=== PATIENT | female | born 1985 | race Two or more races ===

== ENCOUNTER → 2019-12-07 08:32 | Outpatient (BNVA) | payer BC, SELFPAY | PROVIDERS: PCP Internal Medicine; Referring Provider Internal Medicine; Visit Provider Advanced Practice Midwife | DX: Z76.89 Persons encountering health services in other specified circumstances (principal) ==

== ENCOUNTER 2021-02-27 06:11 | Outpatient (REF) | payer BC, SELFPAY ==
[2021-02-27 11:22] LABS: MANUAL DIFF FLAG NO
[2021-02-27 11:33] LABS: Basophils Absolute Auto 0.1 X10*3/uL (0.0-0.2); Basophils Percent Auto 1.4 % (0-2); Eosinophils Absolute Auto 0.2 X10*3/uL (0.0-0.4); Eosinophils Percent Auto 4.3 % (0-4); Hematocrit 36.9 % (37.0-47.0); Hemoglobin 12.3 g/dl (12.0-16.0); Imm Gran Abs Auto 0.01 X10*3/uL (0.00-0.03); Imm Gran Pct Auto 0.2 % (0.0-0.4); Lymphocytes Absolute Auto 1.8 X10*3/uL (1.2-4.9); Lymphocytes Percent Auto 36.6 % (20-40); Mean Corpuscular HGB Conc 33.3 g/dl (31.0-35.0); Mean Platelet Volume 11.1 fL (9.4-12.3); Monocytes Absolute Auto 0.5 X10*3/uL (0.1-1.2); Monocytes Percent Auto 9.7 % (2-11); Neutrophils Absolute Auto 2.3 x10*3/uL (2.0-8.3); Neutrophils Percent Auto 47.8 % (45-73); Platelet Count 247 X10*3/uL (160-400); Red Cell Distribution Width 12.6 % (11.0-16.0); White Blood Count 4.9 X10*3/uL (4.8-10.8)
[2021-02-27 12:05] LABS: Anion Gap 11 (12-20); Blood Urea Nitrogen 11 mg/dL (9-16); C Reactive Protein 0.06 mg/dL (< or = 0.50); Calcium 9.3 mg/dL (8.4-10.2); Carbon Dioxide 25 mmol/L (22-29); Chloride 107 mmol/L (96-108); Estimated Glomerular Filt Rate > 60; Glucose Fasting 91 mg/dL (60-99); Iron 105 mcg/dL (30-160); Percent Iron Saturation 34 % (15-50); Rheumatoid Factor < 15.0 IU/mL (<15.0); Sodium 139 mmol/L (135-145); Total Iron Binding Capacity 312 mcg/dL (228-428); Unsaturated Iron Binding 207 ug/dL
[2021-02-27 12:10] LABS: Erythrocyte Sedimentation Rate 7 MM/HR (0-20)
[2021-03-01 06:37] LABS: Thyroid Peroxidase Antibodies <1 IU/mL (<9)
[2021-03-01 21:11] LABS: Anti Nuclear Antibody Screen NEGATIVE (NEGATIVE)
== END 2021-02-27 06:12 | disposition home or self-care (01) ==
LOC: HO.HMGCLDS 06:11
PROVIDERS: Visit Provider Internal Medicine
DX: M25.50 Pain in unspecified joint (principal); Z86.2 Personal history of diseases of the blood and blood-forming organs and certain disorders involving the immune mechanism
CPT/HCPCS: 36415; 80048; 83540; 84443; 85025; 85652; 86038; 86039; 86140; 86376; 86431

== ENCOUNTER 2022-11-05 08:19 | Outpatient (AMB) | payer BC, SELFPAY ==
[2022-11-05 08:27] VITALS: BP 118/70; PULSE 76; O2SAT 98; BMI 33.0
--- NOTE | 2022-11-05 08:27 | A.OFFPC_ITS ---
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 Accompanied by: Self / Same As Patient Is last menstrual period known: Yes (4 days long ) Last menstrual period: 10/17/22 Post menopausal: No Patient : No Allergies sulfamethoxazole [From SEPTRA] Allergy (Unknown, Verified 11/05/22 08:51) UNKNOWN trimethoprim [From SEPTRA] Allergy (Unknown, Verified 11/05/22 08:51) UNKNOWN Septra Allergy (Unknown, Uncoded 11/05/22 08:51) unknown Medication List - Last Reconciled 11/05/22 by Mehnaz lOson MD diclofenac sodium 1% 4 grams topical QID PRN fexofenadine 180 mg PO DAILY PNV,calcium 72-iron,carb-folic 29 mg iron- 1 mg ( Plus) 1 tab PO DAILY Tobacco use date assessed: 11/05/22 Dental Screening Dental Screen Date: 11/05/22 Did you have a dental visit in the last 12 months?: Yes Did you have a dental problem in the last 6 months where you did not have access to dental care?: No Was dental information given to patient?: Patient has dentist HPI Physical exam HPI Details 37-year-old lady here today for physical exam. Has been getting her cervical cancer screening from [facility], patient states she will call to schedule own appointment. Complains of itchy recurrent rash behind both ears left more than the right. Has been using cortisone cream which has not afforded any relief. Requesting referral to Dermatology in [place]. Gets recurrent knee pain, gets relief with the application of diclofenac gel, which she uses as needed. Already received her flu shot for this year. Up-to-date with her [facility] Medical History (Updated 11/05/22 @ 09:21 by Mehnaz Olson MD) Obesity (BMI 30.0-34.9) Eczema of both external ears Family history of thyroid cancer History of anemia Polyarthralgia Iron deficiency anemia Bacterial vaginitis Seasonal allergic rhinitis Surgical History History of loop electrosurgical excision procedure (LEEP) Family History Maternal Grandfather CVD (cardiovascular disease) Maternal Grandmother Diabetes mellitus Mother Diabetes mellitus Thyroid cancer Social History Housing: House Patient Tobacco Use Status: Never used Tobacco e-Cigarette/Vaping Use: Never Used Patient : No Current occupational status: unemployed Cognitive needs: No Hearing needs: No Vision needs: No Female Reproductive History Menstrual Age of Menarche: 10 Date of last menstrual period: 10/17/22 Questionnaire PHQ-9 Over the last 2 weeks, how often have you been bothered by any of the following problems? 1. Little interest or pleasure in doing things: not at all 2. Feeling down, depressed, or hopeless: not at all 3. Trouble falling or staying asleep, or sleeping too much: not at all 4. Feeling tired or having little energy: not at all 5. Poor appetite or overeating: not at all 6. Feeling bad about yourself - or that you are a failure or have let yourself or your family down: not at all 7. Trouble concentrating on things, such as reading the newspaper or watching television: not at all 8. Moving or speaking so slowly that other people could have noticed. Or the opposite - being so fidgety or restless that you have been moving around a lot more than usual: not at all 9. Thoughts that you would be better off or of hurting yourself in some way: not at all Total score: 0 Depression Screening Interpretation: Negative 65881 - PHQ-9 Billing: Yes Source: Developed by Drs. Meir Taylor, Rosa Art, Mauro Bradford and colleagues, with an educational nilsa from [employer]. Thrive Questionnaire Date Thrive assessed: 11/05/22 I am a: Patient What is your living situation today?: I have a steady place to live Within the past 12 months, did the food you bought not last and you didn't have the money to get more?: Never true Within the past 12 months, did you worry whether your food would run out before you got money to buy more?: Never true Do you have trouble paying for medicines?: No Do you have trouble getting transportation to medical appointments?: No Do you have trouble paying your heating and electricity bill?: No Do you have trouble taking care of your child, family member or friend?: No Do you have trouble with day-to-day activities such as bathing, preparing meals, shopping, managing finances, etc.?: No Are you currently unemployed and looking for a job?: No Are you interested in more education?: No Please select the resources that you would like help with: None AUDIT C Alcohol Use Questionnaire (AUDIT-C) 1. How often do you have a drink containing alcohol?: Never Total Score: 0 LISETTE-7 AMB Questionnaire LISETTE-7 Date LISETTE - 7 assessed: 11/05/22 Feeling nervous, anxious, or on edge: 0 = Not at all Not being able to stop or control worryin = Not at all Worrying too much about different things: 0 = Not at all Trouble relaxin = Not at all Being so restless that it is hard to sit still: 0 = Not at all Becoming easily annoyed or irritable: 0 = Not at all Feeling afraid as if something awful might happen: 0 = Not at all Total LISETTE-7 score (0-4 normal; 5-9 mild; 10-14 moderate; 15-21 severe): 0 Source: Developed by Drs. Meir Taylor, Rosa Art, Mauro Bradford and colleagues, with an educational nilsa from [employer]. LISETTE-7 Assessment Billing LISETTE-7 Assessment Tool: LISETTE-7 Assessment 60954 Review of Systems Const Denies anorexia, Denies difficulty sleeping, Denies fatigue, Denies fever(s), Denies headache(s), Denies lethargy and Denies malaise Eyes Details: Goes to [facility] for her routine eye exam Reports no additional complaints, Reports blurry vision and Denies change in vision ENT Reports no additional complaints, Denies headache(s) and Denies nasal congestion Card Reports no additional complaints Resp Reports no additional complaints GI Reports no additional complaints Reports no additional complaints Musc Reports as per HPI Skin/Breast Denies breast pain and Denies breast mass Neuro Reports no additional complaints and Denies headache(s) Psych Reports as per HPI Endo Denies fatigue, Denies polyphagia, Denies polydipsia and Denies polyuria Hossein/Lymph Denies easy bleeding and Denies easy bruising Aller/Immun Reports as per HPI Physical exam (Primary Care) Vital Signs: Last Vital Signs Pulse 76 11/05/22 08:27 BP 118/70 11/05/22 08:27 Pulse Ox 98 11/05/22 08:27 BMI result Body Mass Index 33.0 BMI Assessment/Plan discussion: High BMI High, discussed plan: lifestyle, weight reduction, dietary and physical activity Tobacco/Smoking Status: Tobacco use Status Tobacco use date assessed 11/05/22 11/05/22 08:32 Patient Tobacco Use Status Never used Tobacco 11/05/22 08:32 e-Cigarette/Vaping Use Never Used 11/05/22 08:32 Depression Screening Interpretation: Negative Thrive Assessment: Date of Thrive Assessment Date Thrive assessed 02/26/21 11/05/22 08:32 Const General: comfortable, no acute distress and alert Nutritional Appearance: obese Orientation/consciousness: patient oriented x3 Limitations: no limitations HENMT Head: Yes normocephalic and Yes atraumatic Ears: hearing grossly normal bilaterally, TM's normal bilaterally and EAC's normal General nose exam: Normal external nose present and No nasal discharge present Face and sinus: Yes sinuses nontender and Yes face symmetric Mouth: Normal oral and palatal mucosa present, oropharynx normal and moist mucous membranes Eyes General: appearance normal, both eyes and all related structures Neck Neck: Yes full ROM, Yes no lymphadenopathy, Yes no meningeal signs and Yes supple Thyroid: Thyroid normal Chest Chest palpation & inspection: normal inspection of the chest Breast/axilla palpation: normal palpation of the breasts Resp Effort & Inspection: normal respiratory effort and able to speak in complete sentences Auscultation: clear to auscultation bilaterally Cardio Rate: regular rate Rhythm: regular rhythm Heart sounds: S1 normal heart sound present and S2 normal heart sound present GI Inspection: Yes normal to inspection Palpation (GI): Soft to palpation, nontender and no guarding Auscultation: normal bowel sounds Back/Spine/Pelvis Back: No back tenderness Skin General skin exam: no rashes or lesions noted Neuro General: patient oriented x3, gait normal, tone normal, moves all extremities, Normal light touch and pain sensation, no meningeal signs, no focal motor deficits and CN's II-XI intact bilaterally Cognition (Neuro): normal cognition Gait exam (Neuro): Normal gait present Extrem General: Yes full ROM, Yes no joint enlargement, Yes no pedal edema, Yes no calf tenderness and Yes normal gait Psych Appearance: grossly normal and well kempt Mental Status: mental status grossly normal Speech and movement: Normal speech and movement present Affect: normal affect Attitude: cooperative Thought process: Normal thought process present Thought content: Normal thought content present Assessment and Plan Assessment & Plan (1) Eczema of both external ears: Code(s): H60.543 - Acute eczematoid otitis externa, bilateral Plan: Discontinue cortisone, prescription sent for fluocinonide emollient cream 0.05%, to apply sparingly to affected areas behind both ears twice a day for no more than 7 days. Referral to Dermatology ordered (2) Family history of thyroid cancer: Code(s): Z80.8 - Family history of malignant neoplasm of other organs or systems Plan: Check TSH with free T4 (3) History of anemia: Code(s): Z86.2 - Personal history of diseases of the blood and blood-forming organs and certain disorders involving the immune mechanism Plan: CBC with vitamin B12 and vitamin-D ordered (4) Obesity (BMI 30.0-34.9): Code(s): E66.9 - Obesity, unspecified Plan: Discussed need to increase activity to help with weight loss weight loss. Recommended focusing on improving your health instead of dieting. : Eat Mediterranean diet, limit foods high in fat, sugar, and calories, eat slowly, pay attention to portion sizes, plan your meals ahead of time, start regular physical activity 150 minutes of moderate intensity exercise or 90 minutes/week of vigorous exercise and increase water intake. (5) Annual visit for general adult medical examination with abnormal findings: Code(s): Z00.01 - Encounter for general adult medical examination with abnormal findings Plan: Will check appropriate labs. Continue regular dental visit every 6 months and regular eye exams, at least every 2 years, sees [place] [facility]. Take adequate calcium in diet and vitamin-D 3 at 2000 IU per cap once a day, in addition to weight-bearing exercises to help maintain good muscle tone and weight control. Instructed to do self-breast exam, and recommended to get yearly mammogram, starting at age 40. Patient up-to-date with the flu shot, will be scheduling appointment to get her COVID booster, with Tdap Orders: Orders Comprehensive [place]. Panel Fast Today Z00.01 - Encounter for general adult medical examination with abnormal findings, Z80.8 - Family history of malignant neoplasm of other organs or systems, Z86.2 - Personal history of diseases of the blood and blood-forming organs and certain disorders involving the immune mechanism Lipid Panel Today Z00. - Encounter for general adult medical examination with abnormal findings, Z80.8 - Family history of malignant neoplasm of other organs or systems, Z86.2 - Personal history of diseases of the blood and blood-forming organs and certain disorders involving the immune mechanism TSH reflex Free T4 Today Z00. - Encounter for general adult medical examination with abnormal findings, Z80.8 - Family history of malignant neoplasm of other organs or systems, Z86.2 - Personal history of diseases of the blood and blood-forming organs and certain disorders involving the immune mechanism Vitamin D 25-OH Total Today Z00. - Encounter for general adult medical examination with abnormal findings, Z80.8 - Family history of malignant neoplasm of other organs or systems, Z86.2 - Personal history of diseases of the blood and blood-forming organs and certain disorders involving the immune mechanism Complete Blood Count Auto Diff Today Z00. - Encounter for general adult medical examination with abnormal findings, Z80.8 - Family history of malignant neoplasm of other organs or systems, Z86.2 - Personal history of diseases of the blood and blood-forming organs and certain disorders involving the immune mechanism Vitamin B12 and Folate Today Z00.01 - Encounter for general adult medical examination with abnormal findings, Z80.8 - Family history of malignant neoplasm of other organs or systems, Z86.2 - Personal history of diseases of the blood and blood-forming organs and certain disorders involving the immune mechanism Referrals Dermatology Referral H60.543 - Acute eczematoid otitis externa, bilateral, Z12.83 - Encounter for screening for malignant neoplasm of skin Medications: New fluocinonide-emollient 0.05 % (Fluocinonide-E) 1 appl topical BID 15 grams 0RF 7 days H60.543 - Acute eczematoid otitis externa, bilateral Coding Level of Care Code Est Pt Prev Care 18-39y(14116) Diagnoses Eczema of both external ears H60.543 Family history of thyroid cancer Z80.8 History of anemia Z86.2 Obesity (BMI 30.0-34.9) E66.9 Annual visit for general adult medical examination with abnormal findings Z00.01 Additional Codes LISETTE-7 Assessment Billing - LISETTE-7 Assessment Tool: LISETTE-7 Assessment [id number] ([id number])
== END 2022-11-05 09:31 | disposition home or self-care (01) ==
PROVIDERS: Visit Provider Internal Medicine
DX: Z00.00 Encounter for general adult medical examination without abnormal findings (principal); H60.543 Acute eczematoid otitis externa, bilateral; Z80.8 Family history of malignant neoplasm of other organs or systems; Z86.2 Personal history of diseases of the blood and blood-forming organs and certain disorders involving the immune mechanism; E66.9 Obesity, unspecified; Z68.33 Body mass index [BMI] 33.0-33.9, adult
CPT/HCPCS: 99395

== ENCOUNTER 2022-11-12 08:38 | Outpatient (AMB) | payer BC, SELFPAY ==
--- NOTE | 2022-11-12 09:28 | AM.OFFWIN_ITS ---
Intake Vital Signs 11/12/22 09:34 Height 5 ft 4 in Weight 85.786 kg BMI 32.5 BP 118/86 Blood Pressure Location Lt brachial Position Sitting Pulse 79 Pulse Source Pulse Oximeter Temp 98.3 F Temp Source Oral Pulse Oximetry (%) 98 Oxygen Delivery Method Room Air Intake Visit Reasons: EP, Sore throat [phone] Intake Note: Patient here for sore throat, she had a high fever on thursday and thursday and then broke out in hives. right sided tonsil feels tendor and swollen and now right ear is hurting. Also bumps on back of tongue. Patient Tobacco Use Status: Never used Tobacco Allergies sulfamethoxazole [From SEPTRA] Allergy (Unknown, Verified 11/12/22 09:29) UNKNOWN trimethoprim [From SEPTRA] Allergy (Unknown, Verified 11/12/22:29) UNKNOWN Septra Allergy (Unknown, Uncoded 11/12/22 09:29) unknown Do you need a note to return to daycare/school/sports/work: No HPI HPI Comments History of Present Illness Details 09 37 year old female w/o significant medic al hx presents w/ fatigue, malaise, sore throat R>L, right ear pain X 5 days. This started 5 days ago with a high fever 102.4 degrees F followed by a rash which has now subsided now complaining of fatigue, malaise, sore throat, sore throat worse on the right, also reporting right ear pain but she is not sure if it is just radiation of sore throat. Child was home with a fever. Has taken multiple negative COVID test at home. Denies chest pain, shortness of breath, nausea, vomiting abdominal pain, changes in urination or bowel habits hep, headache, vision changes Physical exam with an erythematous pharynx, bilateral tonsils with erythema, no edema, abscess or exudate. Uvula midline. Speaking in full sentences controlling secretions well. No mastoid tenderness bilaterally. No pain with manipulation of external ears bilaterally. Tympanic membrane pearly white clear landmarks, no erythema ear canal bilaterally. Concerns for pharyngitis. No signs of retropharyngeal, peritonsillar abscess. No signs of bed airway, epiglottitis. Other differentials include viral illness. No signs of mastoiditis. Plan will discharge home on Augmentin, prednisone. Educated patient on diagnosis and treatment plan, answered all question, patient verbalizes understanding. At this time patient will be discharged home, advised to return with new or worsening symptoms. Educated on worrisome signs and symptoms and when to return. At this time I feel comfortable discharge home. [facility] Medical History Obesity (BMI 30.0-34.9) Eczema of both external ears Family history of thyroid cancer History of anemia Polyarthralgia Iron deficiency anemia Bacterial vaginitis Seasonal allergic rhinitis Surgical History History of loop electrosurgical excision procedure (LEEP) Family History Maternal Grandfather CVD (cardiovascular disease) Maternal Grandmother Diabetes mellitus Mother Diabetes mellitus Thyroid cancer Social History Housing: House Patient Tobacco Use Status: Never used Tobacco e-Cigarette/Vaping Use: Never Used Current occupational status: unemployed Cognitive needs: No Hearing needs: No Vision needs: No Female Reproductive History Menstrual Age of Menarche: 10 Review of Systems Const Details: Constitutional : No Weight loss, No Fever, No Chills, + Fatigue, + Malaise ENT/Mouth : + sore throat, No Rhinorrhea, + ear pain Eyes: No Eye Pain, No Swelling, No Redness Cardiovascular : No Chest Pain, No SOB, No Dyspnea on Exertion, No Orthopnea, No Edema, No Palpitations Respiratory : No Cough, No Sputum, No Wheezing Gastrointestinal : No Nausea, No Vomiting, No Diarrhea, No Constipation, No abdominal Pain, No Hematochezia, No Melena Genitourinary : No Dysuria, No Urinary Frequency, No Hematuria, Musculoskeletal : No joint pain, No Myalgias, No Joint Swelling Skin : No Skin Lesions, No rash Neuro : No Weakness, No Numbness, No Dizziness, No Headache Psych : No Anxiety/Panic, No Depression All other systems reviewed and are negative All systems reviewed & are unremarkable except as noted in HPI and below Physical Exam Vital Signs: Last Vital Signs Temp 98.3 F 11/12/22 09:34 Pulse 79 11/12/22 09:34 BP 118/86 11/12/22 09:34 Pulse Ox 98 11/12/22 09:34 Oxygen Delivery Method Room Air 11/12/22 09:34 BMI result Body Mass Index 32.5 vss Appearance: Alert.? Oriented X3.? No acute distress.? Head: Normocephalic, atraumatic, no step-offs or deformities Eyes: Pupils equal, round and reactive to light.? ENT: + Erythematous pharynx, bilateral tonsils with erythema, no edema, abscess or exudate. Uvula midline. Speaking in full sentences controlling secretions well. No mastoid tenderness bilaterally. No pain with manipulation of external ears bilaterally. Tympanic membrane pearly white clear landmarks, no erythema ear canal bilaterally. Neck: Normal inspection.? Neck supple.? CVS: Normal heart rate and rhythm.? Pulses normal.? Respiratory: No respiratory distress.? Breath sounds normal.? Abdomen: Soft and nontender.? Skin: Skin warm and dry.? Normal skin color.? Normal skin turgor.? Extremities: No lower extremity edema.? No calf ttp. 5/5 strength to bilateral upper and lower extremities Back: No midline tenderness, no C-spine tenderness, full range of motion, no CVA tenderness bilaterally Neuro: Oriented X 3.? No motor deficit.? No sensory deficit. CN 2-12 intact Assessment & Plan Assessment & Plan (1) Pharyngitis: Code(s): J02.9 - Acute pharyngitis, unspecified Plan Take your medications as prescribed. If you were prescribed antibiotics today, it is important that you take your medication to their entirety, do not skip any doses, do not finish them early. Follow-up with your primary care provider this week. Return to the emergency department with new or worsening symptoms. Such as fevers, chills, chest pain, shortness of breath, nausea, vomiting, dizziness, headache, vision changes, lethargy In case of emergency call 911 Medications: New amoxicillin-pot clavulanate 875-125 mg 1 tab PO BID 20 tabs 0RF 10 days prednisone 40 mg (2 x 20 mg) PO DAILY 10 tabs 0RF 5 days Coding Level of Care Code Est Pt Level 3 (83723) Diagnoses Pharyngitis J02.9
[2022-11-12 09:34] VITALS: BP 118/86; PULSE 79; TEMP 36.8; O2SAT 98; BMI 32.5
== END 2022-11-12 10:46 | disposition home or self-care (01) ==
PROVIDERS: PCP Internal Medicine; Visit Provider Physician Assistant
DX: J02.9 Acute pharyngitis, unspecified (principal)
CPT/HCPCS: 99213

== ENCOUNTER 2022-12-03 08:31 | Outpatient (REF) | payer BC, SELFPAY ==
[2022-12-03 11:43] LABS: MANUAL DIFF FLAG NO
[2022-12-03 12:04] LABS: Basophils Absolute Auto 0.1 X10*3/uL (0.0-0.2); Basophils Percent Auto 1.5 % (0-2); Eosinophils Absolute Auto 0.2 X10*3/uL (0.0-0.4); Eosinophils Percent Auto 4.4 % (0-4); Hemoglobin 12.4 g/dl (12.0-16.0); Imm Gran Abs Auto 0.01 X10*3/uL (0.00-0.03); Imm Gran Pct Auto 0.2 % (0.0-0.4); Lymphocytes Absolute Auto 1.6 X10*3/uL (1.2-4.9); Lymphocytes Percent Auto 35.7 % (20-40); Mean Corpuscular HGB Conc 33.5 g/dl (31.0-35.0); Mean Corpuscular Hemoglobin 30.2 pg (27.0-33.0); Mean Platelet Volume 11.4 fL (9.4-12.3); Monocytes Absolute Auto 0.4 X10*3/uL (0.1-1.2); Monocytes Percent Auto 9.6 % (2-11); Neutrophils Absolute Auto 2.2 x10*3/uL (2.0-8.3); Neutrophils Percent Auto 48.6 % (45-73); Platelet Count 325 X10*3/uL (160-400); Red Blood Count 4.11 X10*6/uL (4.20-5.50); Red Cell Distribution Width 12.6 % (11.0-16.0); White Blood Count 4.6 X10*3/uL (4.8-10.8)
[2022-12-03 12:34] LABS: Alanine Aminotransferase 14 U/L (0-31); Albumin Level 4.5 g/dL (3.5-5.0); Alkaline Phosphatase 45 U/L (39-117); Anion Gap 11 (12-20); Aspartate Amino Transferase 13 U/L (5-31); Bilirubin Total 0.4 mg/dL (0.0-1.0); Blood Urea Nitrogen 9 mg/dL (9-16); Calcium 9.4 mg/dL (8.4-10.2); Carbon Dioxide 23 mmol/L (22-29); Chloride 108 mmol/L (96-108); Cholesterol 218 mg/dL (<200); Estimated Glomerular Filt Rate > 60; Glucose Fasting 96 mg/dL (60-99); HDL Cholesterol 48 mg/dL (>40); LDL Cholesterol Calculated 156 mg/dL (<100); Potassium 4.1 mmol/L (3.3-5.1); Sodium 138 mmol/L (135-145); Total Protein 7.8 g/dL (6.5-8.0); Triglycerides 74 mg/dL (<150)
[2022-12-03 12:56] LABS: TSH reflex Free T4 0.82 uIU/mL (0.32-4.0); Vitamin D 25-OH Total 32.1 ng/mL (>30)
[2022-12-03 13:02] LABS: Folate 12.7 ng/mL (> or = 4.0); Vitamin B12 591 pg/mL (200-900)
== END 2022-12-03 08:32 | disposition home or self-care (01) ==
LOC: HO.HMGCLDS 08:31
PROVIDERS: PCP Internal Medicine; Visit Provider Internal Medicine
DX: Z00.01 Encounter for general adult medical examination with abnormal findings (principal); Z86.2 Personal history of diseases of the blood and blood-forming organs and certain disorders involving the immune mechanism; Z80.8 Family history of malignant neoplasm of other organs or systems
CPT/HCPCS: 36415; 80053; 80061; 82306; 82607; 82746; 84443; 85025

== ENCOUNTER 2023-06-03 11:47 | Outpatient (AMB) | payer BC, SELFPAY ==
--- NOTE | 2023-06-03 11:48 | MHC.OFFWIV ---
Intake Vital Signs 06/03/23 11:50 Height 5 ft 4 in Weight 192 lb BMI 33.0 BP 140/100 H Blood Pressure Location Lt brachial Position Sitting Pulse 98 Pulse Source Pulse Oximeter Temp 98.9 F Temp Source Temporal Artery Scan Pulse Oximetry (%) 99 Oxygen Delivery Method Room Air Intake Visit Reasons: EP ?Strep Intake Note: pt is here today for strep started 2 days ago Patient Tobacco Use Status: Never used Tobacco Allergies sulfamethoxazole [From SEPTRA] Allergy (Unknown, Verified 06/03/23 11:52) UNKNOWN trimethoprim [From SEPTRA] Allergy (Unknown, Verified 06/03/23 11:52) UNKNOWN Septra Allergy (Unknown, Uncoded 11/12/22 09:29) unknown Do you need a note to return to daycare/school/sports/work: No HPI HPI Comments History of Present Illness Details She presents with concern strep 4 days ago son + strep She said onset symptoms 3 days ago of her Pain level + 2/10 chill and fever She took ibuprofen approx 2 hours ago PFSH Medical History Obesity (BMI 30.0-34.9) Eczema of both external ears Family history of thyroid cancer History of anemia Polyarthralgia Iron deficiency anemia Bacterial vaginitis Seasonal allergic rhinitis Surgical History History of loop electrosurgical excision procedure (LEEP) Family History Maternal Grandfather CVD (cardiovascular disease) Maternal Grandmother Diabetes mellitus Mother Diabetes mellitus Thyroid cancer Social History Housing: House Patient Tobacco Use Status: Never used Tobacco e-Cigarette/Vaping Use: Never Used Current occupational status: unemployed Cognitive needs: No Hearing needs: No Vision needs: No Female Reproductive History Menstrual Age of Menarche: 10 Review of Systems Const Reports chills, Reports fatigue and Reports fever(s) ENT Reports otalgia, Reports nasal discharge and Reports sore throat Card Denies chest pain Resp Denies cough GI Denies vomiting Endo Reports fatigue Physical Exam Vital Signs: Last Vital Signs Temp 98.9 F 06/03/23 11:50 Pulse 98 06/03/23 11:50 BP 140/100 H 06/03/23 11:50 Pulse Ox 99 06/03/23 11:50 Oxygen Delivery Method Room Air 06/03/23 11:50 BMI result Body Mass Index 33.0 General: Non-toxic, NAD. Speaking full sentences, no muffled voice Skin: Warm dry throughout Eye: EOMI HENT: Airway patent. Uvula midline. + pharyngeal erythema and slight tonsillar edema without abscess or tonsiliths. 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 Bilateral canals clear. TM non-erythematous, non-bulging. No TM perforation or hemotympanum noted. Respiratory: CTA bilaterally. No wheezes, rales or rhonchi Cardiac: RRR. No murmur MSK: Full ROM extremities. Neurology: A/O. No aphasia or facial droop. Gait without abnormality Psych: Good mood and affect Assessment & Plan Assessment & Plan (1) Pharyngitis: Code(s): J02.9 - Acute pharyngitis, unspecified Qualifiers: Pharyngitis/tonsillitis etiology: unspecified etiology Qualified Code(s): J02.9 - Acute pharyngitis, unspecified Plan: Strep negative No abscess [facility] recommends culture; with exposure will hold on culture and empirically tx Penicillin; full course Fluids Call with concerns Pt expressed verbal understanding and has no questions at time of d/c Medications: New penicillin V potassium 500 mg PO BID 20 tabs 0RF Coding Level of Care Code Est Pt Level 3 (09864) Diagnoses Pharyngitis, unspecified etiology J02.9 Pharyngitis/tonsillitis etiology: unspecified etiology
[2023-06-03 11:50] VITALS: BP 140/100; PULSE 98; TEMP 37.2; O2SAT 99; BMI 33.0
== END 2023-06-03 12:10 | disposition home or self-care (01) ==
PROVIDERS: PCP Internal Medicine; Visit Provider Physician Assistant
DX: J02.9 Acute pharyngitis, unspecified (principal)
CPT/HCPCS: 87880; 99213

== ENCOUNTER 2023-11-24 07:46 | Outpatient (AMB) | payer BC, SELFPAY ==
[2023-11-24 07:54] VITALS: BP 110/84; PULSE 74; BMI 33.6
--- NOTE | 2023-11-24 07:54 | MHC.PC.OV ---
Vital Signs 11/24/23 07:54 Height 5 ft 4 in Weight 196 lb BMI 33.6 BP 110/84 Blood Pressure Location Rt brachial Position Sitting Pulse 74 Pulse Source Pulse Oximeter Intake Visit Reasons: Physical exam - see comments Intake Note: Pt is here today for her PE: Last papsmear 09/22/17: Never had a mammogram Is last menstrual period known: Yes Last menstrual period: 11/16/23 Allergies sulfamethoxazole [From SEPTRA] Allergy (Unknown, Verified 11/24/23 08:28) UNKNOWN trimethoprim [From SEPTRA] Allergy (Unknown, Verified 11/24/23 08:28) UNKNOWN Septra Allergy (Unknown, Uncoded 11/24/23 08:28) unknown Medication List - Last Reconciled 11/24/23 by Mehnaz Olson MD diclofenac sodium 1% 4 grams topical QID PRN fexofenadine 180 mg PO DAILY fluocinonide-emollient 0.05 % (Fluocinonide-E) 1 appl topical BID 7 days PNV,calcium 72-iron,carb-folic 29 mg iron- 1 mg ( Plus) 1 tab PO DAILY Tobacco use date assessed: 11/24/23 Dental Screening Dental Screen Date: 11/24/23 Did you have a dental visit in the last 12 months?: Yes Did you have a dental problem in the last 6 months where you did not have access to dental care?: No Was dental information given to patient?: Patient has dentist HPI Physical exam - see comments HPI Details 38-year-old lady here today for her physical exam. She is due for her cervical cancer screening, last done in 2018 with normal findings. She is also due now for her baseline mammogram.. She has been feeling well except for occasional pain and stiffness in her right knee for which he uses diclofenac gel with good results. She takes an occasional fexofenadine for seasonal allergy [facility] Medical History Obesity (BMI 30.0-34.9) Eczema of both external ears Family history of thyroid cancer History of anemia Polyarthralgia Seasonal allergic rhinitis Surgical History History of loop electrosurgical excision procedure (LEEP) Family History Maternal Grandfather CVD (cardiovascular disease) Maternal Grandmother Diabetes mellitus Mother Diabetes mellitus Thyroid cancer Social History (Updated 11/24/23 @ 08:48 by Mehnaz Olson MD) Housing: House Patient Tobacco Use Status: Never used Tobacco e-Cigarette/Vaping Use: Never Used Advance Directives Date on File: 11/24/23 service: No Current occupational status: employed 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 1. Little interest or pleasure in doing things: not at all 2. Feeling down, depressed, or hopeless: not at all 3. Trouble falling or staying asleep, or sleeping too much: not at all 4. Feeling tired or having little energy: not at all 5. Poor appetite or overeating: not at all 6. Feeling bad about yourself - or that you are a failure or have let yourself or your family down: not at all 7. Trouble concentrating on things, such as reading the newspaper or watching television: not at all 8. Moving or speaking so slowly that other people could have noticed. Or the opposite - being so fidgety or restless that you have been moving around a lot more than usual: not at all 9. Thoughts that you would be better off or of hurting yourself in some way: not at all Total score: 0 Depression Screening Interpretation: Negative Depression Screening Done: Yes 28375 - PHQ-9 Billing: Yes Source: Developed by Drs. Meir Taylor, Rosa Art, Mauro Bradford and colleagues, with an educational nilsa from [employer]. Thrive Questionnaire Date Thrive assessed: 11/18/23 I am a: Patient What is your living situation today?: I have a steady place to live Within the past 12 months, did the food you bought not last and you didn't have the money to get more?: Never true Within the past 12 months, did you worry whether your food would run out before you got money to buy more?: Never true Do you have trouble paying for medicines?: No Do you have trouble getting transportation to medical appointments?: No Do you have trouble paying your heating and electricity bill?: No Do you have trouble taking care of your child, family member or friend?: No Do you have trouble with day-to-day activities such as bathing, preparing meals, shopping, managing finances, etc.?: No Are you interested in more education?: No Please select the resources that you would like help with: None Currently or been in a relationship where the following occur: I choose not to answer THRIVE Score: 0 AUDIT C Alcohol Use Questionnaire (AUDIT-C) 1. How often do you have a drink containing alcohol?: 2-4 times a month 2. How many drinks containing alcohol do you have on a typical day when you are drinking?: 1 or 2 3. How often do you have six or more drinks on one occasion?: Never Total Score: 2 LISETTE-7 AMB Questionnaire LISETTE-7 Date LISETTE - 7 assessed: 11/05/22 Feeling nervous, anxious, or on edge: 0 = Not at all Not being able to stop or control worryin = Not at all Worrying too much about different things: 0 = Not at all Trouble relaxin = Not at all Being so restless that it is hard to sit still: 0 = Not at all Becoming easily annoyed or irritable: 0 = Not at all Feeling afraid as if something awful might happen: 0 = Not at all Total LISETTE-7 score (0-4 normal; 5-9 mild; 10-14 moderate; 15-21 severe): 0 Source: Developed by Drs. Meir Taylor, Rosa Art, Mauro Bradford and colleagues, with an educational nilsa from [employer]. LISETTE-7 Assessment Billing LISETTE-7 Assessment Tool: LISETTE-7 Assessment 42234 Review of Systems Const Denies difficulty sleeping, Denies fatigue, Denies fever(s), Denies headache(s), Denies lethargy and Denies malaise Eyes Details: Goes to [facility] for her routine eye exam Reports no additional complaints and Denies change in vision ENT Reports no additional complaints, Denies headache(s) and Denies nasal congestion Card Reports no additional complaints Resp Reports no additional complaints GI Reports no additional complaints Reports no additional complaints Musc Reports as per HPI Skin/Breast Denies breast pain and Denies breast mass Neuro Reports no additional complaints and Denies headache(s) Psych Reports as per HPI Endo Denies fatigue, Denies polyphagia, Denies polydipsia and Denies polyuria Hossein/Lymph Denies easy bleeding and Denies easy bruising Aller/Immun Reports as per HPI Physical exam (Primary Care) Vital Signs: Last Vital Signs Pulse 74 11/24/23 07:54 BP 110/84 11/24/23 07:54 BMI result Body Mass Index 33.6 BMI Assessment/Plan discussion: High BMI High, discussed plan: lifestyle, weight reduction, dietary and physical activity Tobacco/Smoking Status: Tobacco use Status Tobacco use date assessed 11/24/23 11/24/23 07:56 Patient Tobacco Use Status Never used Tobacco 11/24/23 07:56 e-Cigarette/Vaping Use Never Used 11/24/23 07:56 PHQ-9: PHQ-9 Score PHQ-9: Total score 0 11/24/23 07:56 Depression Screening Interpretation: Negative Thrive Assessment: Date of Thrive Assessment Date Thrive assessed 11/18/23 11/24/23 07:56 Currently or been in a relationship where the following occur: I choose not to answer Const General: comfortable, no acute distress and alert Nutritional Appearance: obese Orientation/consciousness: patient oriented x3 HENMT Head: Yes normocephalic Ears: hearing grossly normal bilaterally, TM's normal bilaterally and EAC's normal General nose exam: Normal external nose present and No nasal discharge present Face and sinus: Yes sinuses nontender and Yes face symmetric Mouth: Normal oral and palatal mucosa present, oropharynx normal and moist mucous membranes Eyes General: appearance normal, both eyes and all related structures Neck Neck: Yes full ROM, Yes no lymphadenopathy, Yes no meningeal signs and Yes supple Thyroid: Thyroid normal Chest Chest palpation & inspection: normal inspection of the chest Breast/axilla palpation: normal palpation of the breasts Resp Effort & Inspection: normal respiratory effort and able to speak in complete sentences Auscultation: clear to auscultation bilaterally Cardio Rate: regular rate Rhythm: regular rhythm Heart sounds: S1 normal heart sound present and S2 normal heart sound present GI Inspection: Yes normal to inspection Palpation (GI): Soft to palpation, nontender and no guarding Auscultation: normal bowel sounds General: Yes deferred (Referred to [facility] for routine Pap and pelvic exam) Back/Spine/Pelvis Back: No back tenderness Skin General skin exam: no rashes or lesions noted Neuro General: patient oriented x3, gait normal, tone normal, moves all extremities, Normal light touch and pain sensation, no meningeal signs, no focal motor deficits and CN's II-XI intact bilaterally Cognition (Neuro): normal cognition Gait exam (Neuro): Normal gait present Extrem Other: Slight crepitus in right knee, no joint effusion seen General: Yes full ROM, Yes no joint enlargement, Yes no pedal edema, Yes no calf tenderness and Yes normal gait Psych Appearance: grossly normal and well kempt Mental Status: mental status grossly normal Speech and movement: Normal speech and movement present Affect: normal affect Thought process: Normal thought process present Thought content: Normal thought content present Office Procedures Flu Questionnaire Does the patient have a severe egg allergy?: No Does the patient have severe life threatening allergies?: No Does the patient have a fever or illness today?: No Has the patient ever had Guillain-[place] Syndrome?: No Has the patient ever had any past reaction to a flu shot?: No Immunizations Fluarix Triv 2040-6055 (PF) 45 mcg (15 mcg x 3)/0.5 mL IM syringe Performing Provider: Mehnaz Olson MD Performing Location: [facility] Administered by: Deb Keane CMA on 11/24/23 08:15 Dose Route Admin Location Dispensed Lot Number Expiration Date [facility] Halal Butcher 0.5 mL IM Right Deltoid 0.5 mL [id number] 08/08/24 81449-259-12 [employer] VIS Given Date VIS Provided VIS Publication Date 11/24/23 Single Vaccine 20 Eligibility Eligibility Date Funding Source Not [facility] Eligible 11/24/23 Private Coding Level of Care Code Est Pt Prev Care 40-64y(89217) Diagnoses Annual visit for general adult medical examination with abnormal findings Z00.01 Family history of thyroid cancer Z80.8 Encounter for counseling regarding advance directives Z71.89 Chronic pain of right knee M25.561; G89.29 Chronicity: chronic Seasonal allergic rhinitis, unspecified trigger J30.2 Allergic rhinitis trigger: unspecified Obesity (BMI 30.0-34.9) E66.9 Additional Codes LISETTE-7 Assessment Billing - LISETTE-7 Assessment Tool: LISETTE-7 Assessment 52731 ([id number]) Assessment & Plan Assessment & Plan (1) Annual visit for general adult medical examination with abnormal findings: Code(s): Z00.01 - Encounter for general adult medical examination with abnormal findings Plan: Will check appropriate labs. Continue ready dental visit every 6 months and regular eye exams, goes to [facility]. Take adequate calcium in diet and vitamin-D 3 at 2000 IU per cap once a day, in addition to weight-bearing exercises to help maintain good muscle tone and weight control. Instructed to do self-breast exam, and recommended to get yearly mammogram, starting at age 40, ordered today. Referred to [facility] for her routine Pap and pelvic exam which is due. Flu shot given today. Patient will be getting her COVID booster at her local pharmacy, up-to-date with Tdap.. (2) Family history of thyroid cancer: Code(s): Z80.8 - Family history of malignant neoplasm of other organs or systems Category: Medical Plan: Ordered TSH with reflex free T4, thyroid gland on palpable (3) Encounter for counseling regarding advance directives: Code(s): Z71.89 - Other specified counseling Plan: Initiated the conversation about Advanced Directives. Advanced Directives help patients prepare for current and future decisions about their medical treatment and place of care. Discussed with patient that it is a process where a patients current condition and prognosis are reviewed, their wishes for information regarding their illness are elicited, and likely medical dilemmas are presented and options discussed. Healthcare proxy form completed today. The form can be amended as needed, reviewed yearly and make changes as needed (4) Right knee pain: Code(s): M25.561 - Pain in right knee Qualifiers: Chronicity: chronic Qualified Code(s): M25.561 - Pain in right knee; G89.29 - Other chronic pain Plan: Uses diclofenac gel as needed with good results (5) Seasonal allergic rhinitis: Code(s): J30.2 - Other seasonal allergic rhinitis Category: Medical Qualifiers: Allergic rhinitis trigger: unspecified Qualified Code(s): J30.2 - Other seasonal allergic rhinitis Plan: Takes fexofenadine as needed (6) Obesity (BMI 30.0-34.9): Code(s): E66.9 - Obesity, unspecified Category: Medical Plan: Discussed need to increase activity and wt reduction. Recommended focusing on improving your health instead of dieting. : Eat Mediterranean diet, limit foods high in fat, sugar, and calories, eat slowly, pay attention to portion sizes, plan your meals ahead of time, start regular physical activity 150 minutes of moderate intensity exercise or 90 minutes/week of vigorous exercise and increase water intake. Orders: Orders Vitamin D 25-OH Total Today Z00.01 - Encounter for general adult medical examination with abnormal findings, Z71.89 - Other specified counseling, Z80.8 - Family history of malignant neoplasm of other organs or systems Influenza [id number] Immunization Today Z23 - Encounter for immunization Alanine Aminotransferase Today Z00.01 - Encounter for general adult medical examination with abnormal findings, Z71.89 - Other specified counseling, Z80.8 - Family history of malignant neoplasm of other organs or systems Aspartate Amino Transferase Today Z00.01 - Encounter for general adult medical examination with abnormal findings, Z71.89 - Other specified counseling, Z80.8 - Family history of malignant neoplasm of other organs or systems Basic Metabolic Panel Fasting Today Z00.01 - Encounter for general adult medical examination with abnormal findings, Z71.89 - Other specified counseling, Z80.8 - Family history of malignant neoplasm of other organs or systems Lipid Panel Today Z00.01 - Encounter for general adult medical examination with abnormal findings, Z71.89 - Other specified counseling, Z80.8 - Family history of malignant neoplasm of other organs or systems Complete Blood Count Auto Diff Today Z00.01 - Encounter for general adult medical examination with abnormal findings, Z71.89 - Other specified counseling, Z80.8 - Family history of malignant neoplasm of other organs or systems TSH reflex Free T4 Today Z00.01 - Encounter for general adult medical examination with abnormal findings, Z71.89 - Other specified counseling, Z80.8 - Family history of malignant neoplasm of other organs or systems MM tomosynthesis screening BI Today Z12.31 - Encounter for screening mammogram for malignant neoplasm of breast Referrals [facility] Referral Z12.4 - Encounter for screening for malignant neoplasm of cervix
== END 2023-11-24 08:47 | disposition home or self-care (01) ==
PROVIDERS: PCP Internal Medicine; Visit Provider Internal Medicine
DX: Z00.00 Encounter for general adult medical examination without abnormal findings (principal); Z80.8 Family history of malignant neoplasm of other organs or systems; E66.9 Obesity, unspecified; Z68.33 Body mass index [BMI] 33.0-33.9, adult; M25.561 Pain in right knee; G89.29 Other chronic pain; J30.2 Other seasonal allergic rhinitis

== ENCOUNTER → 2023-11-24 07:46 | Outpatient (BNVA) | payer BC, SELFPAY | PROVIDERS: PCP Internal Medicine; Visit Provider Internal Medicine | DX: Z00.00 Encounter for general adult medical examination without abnormal findings (principal); M25.561 Pain in right knee; G89.29 Other chronic pain; J30.2 Other seasonal allergic rhinitis; E66.9 Obesity, unspecified; Z68.33 Body mass index [BMI] 33.0-33.9, adult; Z80.8 Family history of malignant neoplasm of other organs or systems; Z71.89 Other specified counseling; Z23 Encounter for immunization | CPT/HCPCS: 90471; 90656; 96127 ==

== ENCOUNTER 2023-12-04 08:04 | Outpatient (REF) | payer BC, SELFPAY ==
--- NOTE | ~2023-12-04 | MM_ITS ---
EXAMINATION: MM SCREENING DIGITAL BREAST TOMOSYNTHESIS, BILATERAL CLINICAL INFORMATION: Screening. Asymptomatic. COMPARISON: Mammography: Comparison is made with available priors TECHNIQUE: Digital breast mammography with tomosynthesis is performed in both the craniocaudal and mediolateral oblique views along with computer-aided detection (CAD). FINDINGS: The breasts are heterogeneously dense, which may obscure small masses (ACR BI-RADS breast composition Category c). There are no significant masses, abnormal calcifications, or other abnormalities. MM/MM tomosynthesis screening BI IMPRESSION: No mammographic evidence of malignancy. ASSESSMENT: BI-RADS BI-RADS 1 - Negative RECOMMENDATION: Routine annual mammography screening. 1 year F/U This examination should not preclude the clinical evaluation of a suspicious palpable abnormality. This patient's information was entered into a reminder system with a target due date for their next mammogram. Electronically signed by: Cheryl Pereyra DO 12/15/2023 08:47 AM [facility]
== END 2023-12-04 08:05 | disposition home or self-care (01) ==
LOC: HO.MAMMO 08:04
PROVIDERS: PCP Internal Medicine; Visit Provider Internal Medicine
DX: Z12.31 Encounter for screening mammogram for malignant neoplasm of breast (principal)
CPT/HCPCS: 77063; 77067

== ENCOUNTER → 2023-12-04 08:15 | Outpatient (BNV) | payer BC, SELFPAY | PROVIDERS: PCP Internal Medicine; Visit Provider Internal Medicine | DX: Z12.31 Encounter for screening mammogram for malignant neoplasm of breast (principal) | CPT/HCPCS: 77063; 77067 ==

== ENCOUNTER 2024-01-01 13:52 | Outpatient (REF) | payer BC, SELFPAY | END 2024-01-01 13:53 | disposition home or self-care (01) | LOC: HO.LAB 13:52 | PROVIDERS: PCP Internal Medicine; Visit Provider Advanced Practice Midwife | DX: Z13.89 Encounter for screening for other disorder (principal) ==

== ENCOUNTER 2024-01-01 13:52 | Outpatient (AMB) | payer BC, SELFPAY ==
[2024-01-01 14:01] VITALS: BP 118/70; BMI 32.6
--- NOTE | 2024-01-01 14:01 | MHC.OFFVIS ---
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 Developmental Services Worker Required: No Developmental Services Worker Services: Developmental Services Worker Present Information Interpreted: clinical only Retail Coordinator: Retail Coordinator Present Allergies sulfamethoxazole [From SEPTRA] Allergy (Unknown, Verified 01/01/24 14:01) UNKNOWN trimethoprim [From SEPTRA] Allergy (Unknown, Verified 01/01/24 14:01) UNKNOWN Septra Allergy (Unknown, Uncoded 01/01/24 14:01) unknown Medication List - Last Reconciled 01/01/24 by Leslie Dykes CNM fexofenadine 180 mg PO DAILY fluocinonide-emollient 0.05 % (Fluocinonide-E) 1 appl topical BID 7 days PNV,calcium 72-iron,carb-folic 29 mg iron- 1 mg ( Plus) 1 tab PO DAILY Is last menstrual period known: Yes Last menstrual period: 12/12/23 HPI HPI 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 She had 1 delivery at home pre term 6 weeks early and delivered her 2nd baby at [facility] as the birthing center had then closed and that baby was a complicated with a shoulder dystocia and the baby had broken humerus and a full code so it was a complicated challenging . She has been using condoms for control but her 's going to getting a vasectomy as soon as he works up to it. 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 [facility] Medical History Obesity (BMI 30.0-34.9) Eczema of both external ears Family history of thyroid cancer History of anemia Polyarthralgia Seasonal allergic rhinitis Surgical History History of loop electrosurgical excision procedure (LEEP) Family History Maternal Grandfather CVD (cardiovascular disease) Maternal Grandmother Diabetes mellitus Mother Diabetes mellitus Thyroid cancer Social History Housing: House Patient Tobacco Use Status: Never used Tobacco e-Cigarette/Vaping Use: Never Used Advance Directives Date on File: 11/24/23 service: No Current occupational status: employed 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 pap unknown date) Physical Exam Vital Signs: Last Vital Signs BP 118/70 01/01/24 14:01 BMI result Body Mass Index 32.6 Const General: healthy appearing, comfortable, no acute distress, well developed and alert Nutritional Appearance: average body habitus Orientation/consciousness: patient oriented x3 Limitations: no limitations HEENT Head: Yes normocephalic Neck Neck: Yes normal visual inspection Chest Chest palpation & inspection: normal inspection of the chest Breast/axilla inspection: normal inspection of the breasts and normal inspection of the axillae Breast/axilla palpation: normal palpation of the breasts and normal palpation of the axillae Resp Effort & Inspection: normal respiratory effort GI Inspection: Yes normal to inspection, No Abdominal wall edema and No distended Palpation (GI): Soft to palpation and nontender Other: External exam within normal limits vagina pink and moist cervix multiparous with evidence of past LEEP cervix long close thick mobile nontender uterus midposition mobile nontender not enlarged adnexa not enlarged very good tone with Kegel. General: Yes bladder normal to palpation External Female Exam: normal external appearance and normal appearance of the urethra Speculum Exam - Vagina: normal appearance of the vagina, normal palpation and normal vaginal discharge Speculum Exam - Cervix: normal appearance of the cervix, normal palpation and nontender Bimanual exam- vagina & uterus: normal bimanual exam, normal palpation, uterine size normal, bladder normal to palpation, consistency normal, normal palpation, uterine mobility normal, uterine shape normal, No Cervical tenderness present, non-tender and no cervical motion tenderness Bimanual Exam- Adnexa, other: normal adnexae, no masses, normal and No adnexal tenderness Neuro General: patient oriented x3 Assessment & Plan Assessment & Plan (1) Family history of thyroid cancer: Code(s): Z80.8 - Family history of malignant neoplasm of other organs or systems Category: Medical (2) History of anemia: Code(s): Z86.2 - Personal history of diseases of the blood and blood-forming organs and certain disorders involving the immune mechanism Category: Medical (3) Well woman exam with routine gynecological exam: Code(s): Z01.419 - Encounter for gynecological examination (general) (routine) without abnormal findings Category: Medical (4) History of loop electrical excision procedure (LEEP): Code(s): Z98.890 - Other specified postprocedural states Category: Surgical (5) Family planning: Comment: Currently using condoms awaiting vasectomy. Code(s): Z30.09 - Encounter for other general counseling and advice on contraception Category: Social Hx Plan -----Discussed in this visit the following: healthy balanced diet, regular and consistent exercise, getting recommended health screens, doing the best she can for her particular health concerns, kegel exercises, pap smear screening and followup recommendations, mammography screening and SBE, normal changes in cycles in her life stage--- . She is up-to-date having just gotten her mammogram about 4 weeks ago. She is awaiting her getting his vasectomy they are using condoms till then she is awaiting some blood work to follow-up thyroid issues and her history of anemia she will be getting it this weekend. She is doing very well she has history of a LEEP and did the Pap today we will see her in 1 year. Coding Level of Care Code New Pt Prev Care 40-64y(38156) Diagnoses Family history of thyroid cancer Z80.8 History of anemia Z86.2 Well woman exam with routine gynecological exam Z01.419 History of loop electrical excision procedure (LEEP) Z98.890 Family planning Z30.09
== END 2024-01-01 15:57 | disposition home or self-care (01) ==
PROVIDERS: PCP Internal Medicine; Visit Provider Advanced Practice Midwife
DX: Z01.419 Encounter for gynecological examination (general) (routine) without abnormal findings (principal); Z80.8 Family history of malignant neoplasm of other organs or systems; Z86.2 Personal history of diseases of the blood and blood-forming organs and certain disorders involving the immune mechanism; Z98.890 Other specified postprocedural states; Z30.09 Encounter for other general counseling and advice on contraception
CPT/HCPCS: 99386

== ENCOUNTER 2024-01-01 16:23 | Outpatient (REF) | payer BC, SELFPAY ==
[2024-01-02 05:41] LABS: CT PCR NOT DETECTED (Not Detect.); NG PCR NOT DETECTED (Not Detect.)
[2024-01-02 12:44] LABS: Bacterial Vaginosis PCR NEGATIVE (Negative); Candida Group PCR NOT DETECTED (Not Detect); Candida glab krusei PCR NOT DETECTED (Not Detect); Trichomonas vaginalis PCR NOT DETECTED (Not Detect)
[2024-01-04 10:28] LABS: HPV 16,18/45 See PAP report
== END 2024-01-01 16:24 | disposition home or self-care (01) ==
LOC: HO.LNP 16:23
PROVIDERS: Visit Provider Advanced Practice Midwife
DX: Z01.419 Encounter for gynecological examination (general) (routine) without abnormal findings (principal); N89.8 Other specified noninflammatory disorders of vagina; Z20.2 Contact with and (suspected) exposure to infections with a predominantly sexual mode of transmission; Z86.19 Personal history of other infectious and parasitic diseases
CPT/HCPCS: 0352U; 87491; 87591; 87624; 88175

== ENCOUNTER 2024-01-05 08:31 | Outpatient (REF) | payer BC, SELFPAY ==
[2024-01-05 10:01] LABS: MANUAL DIFF FLAG NO
[2024-01-05 10:06] LABS: Basophils Absolute Auto 0.1 X10*3/uL (0.0-0.2); Basophils Percent Auto 1.6 % (0-2); Eosinophils Absolute Auto 0.2 X10*3/uL (0.0-0.4); Eosinophils Percent Auto 4.4 % (0-4); Hematocrit 36.4 % (37.0-47.0); Hemoglobin 12.7 g/dl (12.0-16.0); Imm Gran Abs Auto 0.02 X10*3/uL (0.00-0.03); Imm Gran Pct Auto 0.4 % (0.0-0.4); Lymphocytes Absolute Auto 1.6 X10*3/uL (1.2-4.9); Lymphocytes Percent Auto 32.1 % (20-40); Mean Corpuscular HGB Conc 34.9 g/dl (31.0-35.0); Mean Corpuscular Hemoglobin 30.8 pg (27.0-33.0); Mean Corpuscular Volume 88.3 fL (80.0-98.0); Mean Platelet Volume 11.1 fL (9.4-12.3); Monocytes Absolute Auto 0.5 X10*3/uL (0.1-1.2); Monocytes Percent Auto 9.6 % (2-11); Neutrophils Absolute Auto 2.6 x10*3/uL (2.0-8.3); Neutrophils Percent Auto 51.9 % (45-73); Platelet Count 287 X10*3/uL (160-400); Red Blood Count 4.12 X10*6/uL (4.20-5.50); Red Cell Distribution Width 12.1 % (11.0-16.0)
[2024-01-05 10:42] LABS: Alanine Aminotransferase 19 U/L (0-31); Anion Gap 11 (12-20); Aspartate Amino Transferase 17 U/L (5-31); Blood Urea Nitrogen 9 mg/dL (9-16); Calcium 9.1 mg/dL (8.4-10.2); Carbon Dioxide 25 mmol/L (22-29); Chloride 105 mmol/L (96-108); Cholesterol 197 mg/dL (<200); Estimated Glomerular Filt Rate > 60; Glucose Fasting 99 mg/dL (60-99); HDL Cholesterol 49 mg/dL (>40); LDL Cholesterol Calculated 130 mg/dL (<100); Potassium 3.8 mmol/L (3.3-5.1); Sodium 137 mmol/L (135-145); TSH reflex Free T4 1.01 uIU/mL (0.32-4.0); Triglycerides 91 mg/dL (<150); Vitamin D 25-OH Total 36.4 ng/mL (>30)
== END 2024-01-05 08:32 | disposition home or self-care (01) ==
LOC: HO.HMGCLDS 08:31
PROVIDERS: PCP Internal Medicine; Visit Provider Internal Medicine
DX: Z00.01 Encounter for general adult medical examination with abnormal findings (principal); Z71.89 Other specified counseling; Z80.8 Family history of malignant neoplasm of other organs or systems
CPT/HCPCS: 36415; 80048; 80061; 82306; 84443; 84450; 84460; 85025

== ENCOUNTER 2024-12-13 15:23 | Outpatient (AMB) | payer BC, SELFPAY ==
[2024-12-13 15:26] VITALS: BP 104/72; PULSE 78; RESP 16; TEMP 36.9; O2SAT 99; BMI 31.8
--- NOTE | 2024-12-13 15:26 | MHC.PC.OV ---
Vital Signs 12/13/24 15:26 Height 5 ft 4 in Weight 185 lb BMI 31.8 BP 104/72 Blood Pressure Location Rt brachial Position Sitting Respiration 16 Pulse 78 Pulse Source Pulse Oximeter Temp 98.4 F Temp Source Oral Pulse Oximetry (%) 99 Oxygen Delivery Method Room Air Intake Visit Reasons: PE Intake Note: Pt is here today for her PE: Last mammogram 12/04/23, papsmear 01/04/24 Manager Communication Required: No Is last menstrual period known: Yes Last menstrual period: 11/25/24 Allergies sulfamethoxazole (From SEPTRA) Allergy (Unknown, Verified 12/13/24 15:34) UNKNOWN trimethoprim (From SEPTRA) Allergy (Unknown, Verified 12/13/24 15:34) UNKNOWN Septra Allergy (Unknown, Uncoded 12/13/24 15:34) unknown Medication List - Last Reconciled 12/13/24 by Mehnaz Olson MD cholecalciferol (vitamin D3) 25 mcg PO DAILY fexofenadine 180 mg PO DAILY fluocinonide-emollient 0.05 % (Fluocinonide-E) 1 appl topical BID 7 days lactobacillus combination no.4 (Probiotic) 3,000 mmu cells PO DAILY omega-3 fatty acids 500 mg PO DAILY prenat.vits,yanet,vwf-chbu-xrtpl tabs PO Tobacco use date assessed: 12/13/24 Dental Screening Dental Screen Date: 12/13/24 Did you have a dental visit in the last 12 months?: Yes Did you have a dental problem in the last 6 months where you did not have access to dental care?: No Was dental information given to patient?: Patient has dentist HPI PE HPI Details 39-year-old lady here today for her physical exam. She is up-to-date with her screening mammogram has an appointment already scheduled for her repeat screening in January 2025. 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 Takes fexofenadine as needed for nasal congestion and runny nose. Up-to-date with her Tdap and flu vaccine, does not want to get a COVID booster [facility] Medical History (Updated 12/13/24 @ 16:16 by Mehnaz Olson MD) Dyslipidemia Obesity (BMI 30.0-34.9) Eczema of both external ears Family history of thyroid cancer History of anemia Polyarthralgia Seasonal allergic rhinitis Surgical History (Updated 12/13/24 @ 16:16 by Mehnaz Olson MD) History of loop electrical excision procedure (LEEP) Family History Maternal Grandfather CVD (cardiovascular disease) Maternal Grandmother Diabetes mellitus Mother Diabetes mellitus Thyroid cancer Social History Housing: House Patient Tobacco Use Status: Never used Tobacco e-Cigarette/Vaping Use: Never Used Advance Directives Date on File: 11/24/23 service: No Current occupational status: employed 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 1. Little interest or pleasure in doing things: not at all 2. Feeling down, depressed, or hopeless: not at all 3. Trouble falling or staying asleep, or sleeping too much: not at all 4. Feeling tired or having little energy: not at all 5. Poor appetite or overeating: not at all 6. Feeling bad about yourself - or that you are a failure or have let yourself or your family down: not at all 7. Trouble concentrating on things, such as reading the newspaper or watching television: not at all 8. Moving or speaking so slowly that other people could have noticed. Or the opposite - being so fidgety or restless that you have been moving around a lot more than usual: not at all 9. Thoughts that you would be better off or of hurting yourself in some way: not at all Total score: 0 Depression Screening Interpretation: Negative Depression Screening Done: Yes 30583 - PHQ-9 Billing: Yes Source: Developed by Drs. Meir Taylor, Rosa Art, Mauro Bradford and colleagues, with an educational nilsa from [employer] Thrive Questionnaire Date Thrive assessed: 12/06/24 I am a: Patient What is your living situation today?: I have a steady place to live Within the past 12 months, did the food you bought not last and you didn't have the money to get more?: Never true Within the past 12 months, did you worry whether your food would run out before you got money to buy more?: Never true Do you have trouble paying for medicines?: No Do you have trouble getting transportation to medical appointments?: No Do you have trouble paying your heating and electricity bill?: No Do you have trouble taking care of your child, family member or friend?: No Do you have trouble with day-to-day activities such as bathing, preparing meals, shopping, managing finances, etc.?: No Are you currently unemployed and looking for a job?: No Are you interested in more education?: No Please select the resources that you would like help with: None Currently or been in a relationship where the following occur: I choose not to answer THRIVE Score: 0 AUDIT C Alcohol Use Questionnaire (AUDIT-C) 1. How often do you have a drink containing alcohol?: 2-4 times a month 2. How many drinks containing alcohol do you have on a typical day when you are drinking?: 1 or 2 3. How often do you have six or more drinks on one occasion?: Never Total Score: 2 Score Reviewed/Action Taken: Yes LISETTE-7 AMB Questionnaire LISETTE-7 Date LISETTE - 7 assessed: 12/13/24 Feeling nervous, anxious, or on edge: 0 = Not at all Not being able to stop or control worryin = Not at all Worrying too much about different things: 1 = Several days Trouble relaxin = Not at all Being so restless that it is hard to sit still: 0 = Not at all Becoming easily annoyed or irritable: 0 = Not at all Feeling afraid as if something awful might happen: 0 = Not at all Total LISETTE-7 score (0-4 normal; 5-9 mild; 10-14 moderate; 15-21 severe): 1 Source: Developed by Drs. Meir Taylor, Rosa Art, Mauro Bradford and colleagues, with an educational nilsa from [employer] LISETTE-7 Assessment Billing LISETTE-7 Assessment Tool: LISETTE-7 Assessment 60797 Review of Systems Const Denies difficulty sleeping, Denies fatigue, Denies fever(s), Denies headache(s), Denies lethargy and Denies malaise Eyes Details: Goes to [facility] for her routine eye exam Reports no additional complaints and Denies change in vision ENT Reports no additional complaints, Denies headache(s) and Denies nasal congestion Card Reports no additional complaints Resp Reports no additional complaints GI Reports no additional complaints Reports no additional complaints Musc Reports no additional complaints Skin/Breast Denies breast pain and Denies breast mass Neuro Reports no additional complaints and Denies headache(s) Psych Reports no additional complaints Endo Denies fatigue, Denies polyphagia, Denies polydipsia and Denies polyuria Hossein/Lymph Denies easy bleeding and Denies easy bruising Aller/Immun Reports seasonal rhinorrhea Physical exam (Primary Care) Vital Signs: Last Vital Signs Temp 98.4 F 12/13/24 15:26 Pulse 78 12/13/24 15:26 Resp 16 12/13/24 15:26 BP 104/72 12/13/24 15:26 Pulse Ox 99 12/13/24 15:26 Oxygen Delivery Method Room Air 12/13/24 15:26 BMI result Body Mass Index 31.8 BMI Assessment/Plan discussion: High BMI High, discussed plan: lifestyle, weight reduction, dietary and physical activity Tobacco/Smoking Status: Tobacco use Status Tobacco use date assessed 12/13/24 12/13/24 15:31 Patient Tobacco Use Status Never used Tobacco 12/13/24 15:31 e-Cigarette/Vaping Use Never Used 12/13/24 15:31 PHQ-9: PHQ-9 Score PHQ-9: Total score 0 12/13/24 15:31 Depression Screening Interpretation: Negative Thrive Assessment: Date of Thrive Assessment Date Thrive assessed 12/06/24 12/13/24 15:31 Currently or been in a relationship where the following occur: I choose not to answer Const General: comfortable, no acute distress and alert Nutritional Appearance: obese Orientation/consciousness: patient oriented x3 HENMT Head: Yes normocephalic Ears: hearing grossly normal bilaterally, TM's normal bilaterally and EAC's normal General nose exam: Normal external nose present and No nasal discharge present Face and sinus: Yes sinuses nontender and Yes face symmetric Mouth: Normal oral and palatal mucosa present, oropharynx normal and moist mucous membranes Eyes General: appearance normal, both eyes and all related structures Neck Neck: Yes full ROM, Yes no lymphadenopathy, Yes no meningeal signs and Yes supple Thyroid: Thyroid normal Chest Chest palpation & inspection: normal inspection of the chest Breast/axilla palpation: normal palpation of the breasts Resp Effort & Inspection: normal respiratory effort and able to speak in complete sentences Auscultation: clear to auscultation bilaterally Cardio Rate: regular rate Rhythm: regular rhythm Heart sounds: S1 normal heart sound present and S2 normal heart sound present GI Inspection: Yes normal to inspection Palpation (GI): Soft to palpation, nontender and no guarding Auscultation: normal bowel sounds General: Yes deferred (Referred to [facility] for routine Pap and pelvic exam) Back/Spine/Pelvis Back: No back tenderness Skin General skin exam: no rashes or lesions noted Neuro General: patient oriented x3, gait normal, tone normal, moves all extremities, Normal light touch and pain sensation, no meningeal signs, no focal motor deficits and CN's II-XI intact bilaterally Cognition (Neuro): normal cognition Gait exam (Neuro): Normal gait present Extrem General: Yes full ROM, Yes no joint enlargement, Yes no pedal edema, Yes no calf tenderness and Yes normal gait Psych Appearance: grossly normal and well kempt Mental Status: mental status grossly normal Speech and movement: Normal speech and movement present Affect: normal affect Thought process: Normal thought process present Thought content: Normal thought content present Coding Level of Care Code Est Pt Prev Care 40-64y(72256) Diagnoses Annual visit for general adult medical examination with abnormal findings Z00.01 Seasonal allergic rhinitis, unspecified trigger J30.2 Allergic rhinitis trigger: unspecified History of anemia Z86.2 Family history of thyroid cancer Z80.8 Immunity status testing Z01.84 Dyslipidemia E78.5 Additional Codes LISETTE-7 Assessment Billing - LISETTE-7 Assessment Tool: LISETTE-7 Assessment 15542 ([id number]) PHQ-9 - 93640 - PHQ-9 Billing: Yes ([id number]) Assessment & Plan Assessment & Plan (1) Annual visit for general adult medical examination with abnormal findings: Code(s): Z00.01 - Encounter for general adult medical examination with abnormal findings Plan: Will check appropriate labs. Recommended dental visit every 6 months and regular eye exams, at least every 2 years. Take adequate calcium in diet and vitamin-D 3 at 2000 IU per cap once a day, in addition to weight-bearing exercises to help maintain good muscle tone and weight control. Instructed to do self-breast exam, and continue to get yearly mammogram, has appointment scheduled already for next month, and is up-to-date with her routine pelvic exam and cervical cancer screening.. Up-to-date with her vaccination (2) Seasonal allergic rhinitis: Code(s): J30.2 - Other seasonal allergic rhinitis Category: Medical Qualifiers: Allergic rhinitis trigger: unspecified Qualified Code(s): J30.2 - Other seasonal allergic rhinitis Plan: Takes fexofenadine as needed (3) History of anemia: Code(s): Z86.2 - Personal history of diseases of the blood and blood-forming organs and certain disorders involving the immune mechanism Category: Medical Plan: ORDERED CBC AND IRON PROFILE (4) Family history of thyroid cancer: Code(s): Z80.8 - Family history of malignant neoplasm of other organs or systems Category: Medical Plan: Ordered TSH with free T4 level (5) Immunity status testing: Code(s): Z01.84 - Encounter for antibody response examination Plan: MMR titer ordered (6) Dyslipidemia: Code(s): E78.5 - Hyperlipidemia, unspecified Category: Medical Plan: Fasting lipid panel ordered. Continue with [place] 3 fatty acid supplements, healthy eating habits and regular exercise Orders: Orders MMR IgG Measles Mumps Rubella Today J30.2 - Other seasonal allergic rhinitis, Z00.01 - Encounter for general adult medical examination with abnormal findings, Z01.84 - Encounter for antibody response examination, Z13.220 - Encounter for screening for lipoid disorders, Z80.8 - Family history of malignant neoplasm of other organs or systems, Z86.2 - Personal history of diseases of the blood and blood-forming organs and certain disorders involving the immune mechanism Vitamin D 25-OH Total Today J30.2 - Other seasonal allergic rhinitis, Z00.01 - Encounter for general adult medical examination with abnormal findings, Z01.84 - Encounter for antibody response examination, Z13.220 - Encounter for screening for lipoid disorders, Z80.8 - Family history of malignant neoplasm of other organs or systems, Z86.2 - Personal history of diseases of the blood and blood-forming organs and certain disorders involving the immune mechanism Lipid Panel Today J30.2 - Other seasonal allergic rhinitis, Z00.01 - Encounter for general adult medical examination with abnormal findings, Z01.84 - Encounter for antibody response examination, Z13.220 - Encounter for screening for lipoid disorders, Z80.8 - Family history of malignant neoplasm of other organs or systems, Z86.2 - Personal history of diseases of the blood and blood-forming organs and certain disorders involving the immune mechanism Basic Metabolic Panel Fasting Today J30.2 - Other seasonal allergic rhinitis, Z00.01 - Encounter for general adult medical examination with abnormal findings, Z01.84 - Encounter for antibody response examination, Z13.220 - Encounter for screening for lipoid disorders, Z80.8 - Family history of malignant neoplasm of other organs or systems, Z86.2 - Personal history of diseases of the blood and blood-forming organs and certain disorders involving the immune mechanism Aspartate Amino Transferase Today J30.2 - Other seasonal allergic rhinitis, Z00.01 - Encounter for general adult medical examination with abnormal findings, Z01.84 - Encounter for antibody response examination, Z13.220 - Encounter for screening for lipoid disorders, Z80.8 - Family history of malignant neoplasm of other organs or systems, Z86.2 - Personal history of diseases of the blood and blood-forming organs and certain disorders involving the immune mechanism Alanine Aminotransferase Today J30.2 - Other seasonal allergic rhinitis, Z00.01 - Encounter for general adult medical examination with abnormal findings, Z01.84 - Encounter for antibody response examination, Z13.220 - Encounter for screening for lipoid disorders, Z80.8 - Family history of malignant neoplasm of other organs or systems, Z86.2 - Personal history of diseases of the blood and blood-forming organs and certain disorders involving the immune mechanism Complete Blood Count Auto Diff Today J30.2 - Other seasonal allergic rhinitis, Z00.01 - Encounter for general adult medical examination with abnormal findings, Z01.84 - Encounter for antibody response examination, Z13.220 - Encounter for screening for lipoid disorders, Z80.8 - Family history of malignant neoplasm of other organs or systems, Z86.2 - Personal history of diseases of the blood and blood-forming organs and certain disorders involving the immune mechanism IRON PROFILE Today J30.2 - Other seasonal allergic rhinitis, Z00.01 - Encounter for general adult medical examination with abnormal findings, Z01.84 - Encounter for antibody response examination, Z13.220 - Encounter for screening for lipoid disorders, Z80.8 - Family history of malignant neoplasm of other organs or systems, Z86.2 - Personal history of diseases of the blood and blood-forming organs and certain disorders involving the immune mechanism TSH reflex Free T4 Today J30.2 - Other seasonal allergic rhinitis, Z00.01 - Encounter for general adult medical examination with abnormal findings, Z01.84 - Encounter for antibody response examination, Z13.220 - Encounter for screening for lipoid disorders, Z80.8 - Family history of malignant neoplasm of other organs or systems, Z86.2 - Personal history of diseases of the blood and blood-forming organs and certain disorders involving the immune mechanism
--- OUTSIDE RECORDS SUMMARY | 2024-12-13 18:11 | XMS_ITS | Clinical Summary ---
Author Organization [facility] Address [id number] [place] [id number] Care Team Providers Care Safety And Security Manager Name Role Phone Unavailable Primary Care Provider Unavailabl e Surgical History Surgery Date Site/Laterality Comments OTHER SURGICAL HISTORY 2016 PROCEDURE: CERVICAL LEEP CONE [facility]OPSY [facility] EX Medical History Medical History Date Comments Hx of abnormal cervical Papa nicolaou smear DX:Hx of abnormal cervical P apanicolaou smear; COMMENT: Dora 3 HPV +, LEEP in 2016 Family History Medical History Relation Name Comments Other: CVD Maternal Grandfather Diabetes Maternal Grandmother Diabetes Mother Other: PREMATURE Son Relation Name Status Comments Brother Alive Father Alive Maternal Grandfather Maternal Grandmother Alive Mother Alive Paternal Grandfather Paternal Grandmother Sister Alive Son Social History Tobacco Use Types Packs/Day Years Used Date Smoking Tobacco: Never Smokeless Tobacco: Never Alcohol Use Standard Drinks/Week Comments No 0 (1 standard drink = 0.6 oz pur e alcohol) Comments Unknown Sex and Gender Information Value Date Recorded Sex Assigned at Not on file Legal Sex Female 8:52 AM EST Gender Identity Not on file Sexual Orientation Not on file Obstetrics History Plan of Treatment Health Maintenance Due Date Last Done Comments Breast Cancer Screening 1983 DTaP,Tdap,and Td Vaccines (1 - Tdap) 07/01/2002 Hepatitis B Vaccines (1 of 3 - 19+ 3-dose series) 07/01/2002 Cervical Cancer Screening: P ap Smear 07/01/2004 HPV Vaccines (1 - 3-dose SCD M series) 07/01/2010 Depression Screening 02/10/2024 COVID-19 Vaccine ( - 2023-2 5 season) 2024 Influenza Vaccine (#1) 2024 RSV Immunization Adult Patie nts (1 - 1-dose 75+ series) 07/01/2058 HIB Vaccines Aged Out No longer eligi ble based on patient's age to complete this topic Hepatitis A Vaccines Aged Out No long er eligible based on patient's age to complete this topic IPV Vaccines Aged Out No longer eligi ble based on patient's age to complete this topic MMR Vaccines Aged Out No longer eligi ble based on patient's age to complete this topic Meningococcal ACWY Vaccine Aged Out N o longer eligible based on patient's age to complete this topic Meningococcal B Vaccine Aged Out No l onger eligible based on patient's age to complete this topic Pneumococcal Vaccine: Pediat rics (0 to 5 Years) and At-Risk Patients (6 to 49 Years) Aged Out No longer eligible b ased on patient's age to complete this topic RSV Immunization Patients Un niles 20 months Aged Out No longer eligible b ased on patient's age to complete this topic Varicella Vaccines Aged Out No longer eligible based on patient's age to complete this topic
== END 2024-12-13 16:33 | disposition home or self-care (01) ==
LOC: HO.HMCC 15:23
PROVIDERS: PCP Internal Medicine; Visit Provider Internal Medicine
DX: Z00.01 Encounter for general adult medical examination with abnormal findings (principal); J30.2 Other seasonal allergic rhinitis; Z86.2 Personal history of diseases of the blood and blood-forming organs and certain disorders involving the immune mechanism; Z80.8 Family history of malignant neoplasm of other organs or systems; Z01.84 Encounter for antibody response examination; E78.5 Hyperlipidemia, unspecified

== ENCOUNTER → 2024-12-13 15:23 | Outpatient (BNVA) | payer BC, SELFPAY | PROVIDERS: PCP Internal Medicine; Visit Provider Internal Medicine | DX: Z00.01 Encounter for general adult medical examination with abnormal findings (principal); J30.2 Other seasonal allergic rhinitis; E78.5 Hyperlipidemia, unspecified; Z86.2 Personal history of diseases of the blood and blood-forming organs and certain disorders involving the immune mechanism; Z80.8 Family history of malignant neoplasm of other organs or systems | CPT/HCPCS: 96127 ==

== ENCOUNTER 2025-01-12 15:53 | Outpatient (REF) | payer BC, SELFPAY ==
--- NOTE | ~2025-01-12 | MM_ITS ---
EXAMINATION: MM SCREENING DIGITAL BREAST TOMOSYNTHESIS, BILATERAL CLINICAL INFORMATION: Screening. Asymptomatic. COMPARISON: Mammography: Comparison is made with available priors TECHNIQUE: Digital breast mammography with tomosynthesis is performed in both the craniocaudal and mediolateral oblique views along with computer-aided detection (CAD). FINDINGS: The breasts are heterogeneously dense, which may obscure small masses. There are no significant masses, abnormal calcifications, or other abnormalities. MM/MM tomosynthesis screening BI IMPRESSION: No mammographic evidence of malignancy. ASSESSMENT: BI-RADS Category 1: Negative RECOMMENDATION: Routine annual mammography screening. 1 year F/U This examination should not preclude the clinical evaluation of a suspicious palpable abnormality. This patient's information was entered into a reminder system with a target due date for their next mammogram. Electronically signed by: Cheryl Pereyra DO 01/16/2025 12:21 PM [facility]
== END 2025-01-12 15:54 | disposition home or self-care (01) ==
LOC: HO.MAMMO 15:53
PROVIDERS: PCP Internal Medicine; Visit Provider Internal Medicine
DX: Z12.31 Encounter for screening mammogram for malignant neoplasm of breast (principal)
CPT/HCPCS: 77063; 77067

== ENCOUNTER → 2025-01-12 16:30 | Outpatient (BNV) | payer BC, SELFPAY | PROVIDERS: PCP Internal Medicine; Visit Provider Internal Medicine | DX: Z12.31 Encounter for screening mammogram for malignant neoplasm of breast (principal) | CPT/HCPCS: 77063; 77067 ==

== ENCOUNTER 2025-01-27 08:40 | Outpatient (REF) | payer BC, SELFPAY ==
--- OUTSIDE RECORDS SUMMARY | 2025-01-27 08:54 | XMS_ITS | Clinical Summary ---
Author Organization [facility] Address [address] [place] [address] Care Team Providers Care Clinical Social Worker Name Role Phone Unavailable Primary Care Provider [...] on file Sexual Orientation Not on file Plan of Treatment Health Maintenance Due Date Last Done Comments Breast Cancer Screening 1983 DTaP,Tdap,and Td Vaccines (1 - Tdap) 07/01/2002 Hepatitis B Vaccines (1 of 3 - 19+ 3-dose series) 07/01/2002 Cervical Cancer Screening: P ap Smear 07/01/2004 HPV Vaccines (1 - 3-dose SCD M series) 07/01/2010 Depression Screening 02/10/2024 COVID-19 Vaccine (1 - 2024-2 6 season) 2024 Influenza Vaccine (#1) 2024 RSV [...]
[2025-01-27 10:07] LABS: MANUAL DIFF FLAG NO
[2025-01-27 10:21] LABS: Hematocrit 37.3 % (37.0-47.0); Hemoglobin 12.7 g/dl (12.0-16.0); Imm Gran Abs Auto 0.02 X10*3/uL (0.00-0.03); Imm Gran Pct Auto 0.4 % (0.0-0.4); Lymphocytes Absolute Auto 1.7 X10*3/uL (1.2-4.9); Mean Corpuscular HGB Conc 34.0 g/dl (31.0-35.0); Mean Corpuscular Hemoglobin 30.5 pg (27.0-33.0); Mean Corpuscular Volume 89.7 fL (80.0-98.0); NRBC Abs Auto 0.000 X10*3/uL (0.0-0.012); NRBC Pct Auto 0.0 /100WBC (0.0-0.2); Platelet Count 330 X10*3/uL (160-400); Red Blood Count 4.16 X10*6/uL (4.20-5.50); White Blood Count 5.6 X10*3/uL (4.8-10.8)
[2025-01-27 10:41] LABS: Alanine Aminotransferase 17 U/L (0-31); Anion Gap 10 (12-20); Aspartate Amino Transferase 14 U/L (5-31); Blood Urea Nitrogen 10 mg/dL (9-16); Calcium 9.3 mg/dL (8.4-10.2); Carbon Dioxide 24 mmol/L (22-29); Chloride 107 mmol/L (96-108); Cholesterol 219 mg/dL (<200); Estimated Glomerular Filt Rate > 60; HDL Cholesterol 53 mg/dL (>40); Iron 66 mcg/dL (30-160); Percent Iron Saturation 24 % (15-50); Potassium 4.1 mmol/L (3.3-5.1); Sodium 137 mmol/L (135-145); Total Iron Binding Capacity 276 mcg/dL (228-428); Triglycerides 104 mg/dL (<150); Unsaturated Iron Binding 210 ug/dL
[2025-01-28 05:29] LABS: Rubeola IgG (Measles) 92.50 AU/mL
== END 2025-01-27 08:41 | disposition home or self-care (01) ==
LOC: HO.HMGCLDS 08:40
PROVIDERS: PCP Internal Medicine; Visit Provider Internal Medicine
DX: Z01.84 Encounter for antibody response examination (principal); Z00.01 Encounter for general adult medical examination with abnormal findings; Z13.220 Encounter for screening for lipoid disorders; Z13.6 Encounter for screening for cardiovascular disorders; Z13.21 Encounter for screening for nutritional disorder; J30.2 Other seasonal allergic rhinitis; Z86.2 Personal history of diseases of the blood and blood-forming organs and certain disorders involving the immune mechanism; Z80.8 Family history of malignant neoplasm of other organs or systems
CPT/HCPCS: 36415; 80048; 80061; 82306; 83540; 84443; 84450; 84460; 85025; 86735; 86762; 86765